=== PATIENT | male | born 1945 | race Caucasian/White ===

== ENCOUNTER 2018-12-13 07:58 | Inpatient (IN) ==
[2018-12-13] MEDS ORDERED: 0.9 % Sodium Chloride 1,000 ML IVC ONE ×2 (08:05→08:54)
[2018-12-13] MEDS ORDERED: Piperacillin/Tazobactam 3.375 GM in 0.9 % Sodium Chloride Mini Bag 100 ML IVPB ONE (08:12)
--- NOTE | 2018-12-13 08:13 | Emergency Department Note ---
Disposition Clinical Impression: Severe sepsis, Esophagitis Left lower lobe pneumonia Qualifiers: Pneumonia type: due to unspecified organism Qualified Code(s): J18.1 - Lobar pneumonia, unspecified organism Anemia Qualifiers: Anemia type: unspecified type Qualified Code(s): D64.9 - Anemia, unspecified Cirrhosis Qualifiers: Hepatic cirrhosis type: other cirrhosis Qualified Code(s): K74.69 - Other cirrhosis of liver Disposition: Admitted As Inpatient Condition: Undetermined Referrals: Carla Hernandez CNP [Primary Care Provider] - Forms: ED Satisfaction Letter Time of Disposition: 10:53 General Adult HPI - General Chief complaint: ED Weakness Stated complaint: general weakness Time Seen by Provider: 12/13/18 08:00 Source: EMS Nursing Notes Reviewed: Yes Vital Signs Reviewed: Yes - History of Present Illness HPI Narrative: Patient is a 73-year-old male with a past medical history including type 2 diabetes mellitus, hypertension, cirrhosis, history of colon cancer, presenting with a chief complaint of chills and generalized weakness. Yesterday the patient states in the evening while he was laying down, he had 2 episodes of substernal chest pressure that lasted several minutes and resolved on its own. He denies any new shortness of breath from his baseline, nausea or vomiting, diaphoresis. He denies history of coronary artery disease or stent placements. He states this morning, he was complaining of chills. called EMS secondary to the chills and generalized weakness. The patient denies documented fevers, cough, congestion, abdominal pain, nausea or vomiting, diarrhea, dysuria or hematuria. At this time he states he has no chest pain. Pain Scale: 0 - Related Data Home Medications Medication Instructions Recorded Confirmed Insulin Glargine,Hum.rec.anlog 25 unit SQ QAM 01/06/15 12/13/18 [Lantus Solostar] Simvastatin [Zocor] 40 mg PO HS 01/06/15 12/13/18 SitaGLIPtin [Januvia] 100 mg PO DAILY 01/06/15 12/13/18 Ferrous Sulfate [Iron] 325 mg PO DAILY@0800 06/11/18 12/13/18 metFORMIN [Glucophage] 1,000 mg PO BIDWM 06/11/18 12/13/18 Spironolactone [Aldactone] 50 mg PO DAILY 10/14/18 12/13/18 Previous Rx's Medication Instructions Recorded Furosemide [Lasix] 40 mg PO DAILY #30 tablet 05/18/18 Allergies Allergy/AdvReac Type Severity Reaction Status Date / Time No Known Allergies Allergy Verified 10/14/18 10:02 All systems ED: reviewed and negative except as stated. Review of Systems: As Per HPI Constitutional: Reports: chills, weakness. Denies: fever ENT ED: Denies: congestion Cardiovascular: Reports: chest pain Respiratory: Denies: cough, dyspnea Gastrointestinal: Denies: abdominal pain, nausea, vomiting Genitourinary: Denies: dysuria, hematuria Neurological: Denies: headache, weakness, numbness Past Medical History - Past Medical History Attestation: Yes The following information was validated with the patient. Source: patient Medical history: Reports: cancer, cirrhosis, diabetes, hyperlipidemia, hypertension, liver disease Surgical history: Reports: appendectomy, cancer surgery, cholecystectomy, colectomy, other Psychiatric history: Reports: no psych history - Social History Smoking Status: Never smoker Smokeless Tobacco Status: No Alcohol use: Reports: none Drug use: Reports: none Physical Exam - General Limitations: no limitations General appearance: alert, in no apparent distress - Head Head exam: atraumatic, normocephalic - Eye Eye exam: Present: normal appearance, PERRL, EOMI - ENT ENT exam: mucous membranes dry - Neck Neck exam: Present: normal inspection, trachea midline - Chest Chest inspection: Present: normal inspection, symmetric chest wall rise. Absent: tenderness - Respiratory Respiratory exam: Present: other (Tachypnea. Diminished breath sounds bilateral bases otherwise no wheezing, crackles, rhonchi). Absent: respiratory distress - Cardiovascular Cardiovascular exam: Present: tachycardia, other (bilateral radial pulses equal). Absent: systolic murmur, diastolic murmur - Abdominal Exam Abdominal exam: Present: soft, Non-Tender. Absent: distention, guarding, rebound - Extremities Exam Extremities exam: Present: normal capillary refill. Absent: pedal edema, calf tenderness - Neurological Exam Neurological exam: Present: alert, oriented X3 - Psychiatric Psychiatric exam: Present: normal affect, normal mood - Skin Skin exam: Present: warm, dry. Absent: diaphoresis, pallor Course Vital Signs Temperature 100.1 F H 12/13/18 08:01 Pulse Rate 131 12/13/18 08:01 Respiratory Rate 30 12/13/18 08:01 Blood Pressure 141/66 12/13/18 08:01 O2 Sat by Pulse Oximetry 97 12/13/18 08:01 Temperature 100.1 F H 12/13/18 08:01 Pulse Rate 118 12/13/18 10:30 Respiratory Rate 30 12/13/18 10:30 Blood Pressure 125/55 12/13/18 10:30 O2 Sat by Pulse Oximetry 100 12/13/18 10:30 Oxygen Delivery Oxygen Delivery Nasal Cannula Medical Decision Making - [facility] Narrative Medical decision making narrative: Patient is tachycardic, tachypneic has a temperature of 100.1. 1 L IV fluids have been ordered. Septic workup will be obtained including chest x-ray, urinalysis, CBC, BMP, blood cultures, lactate. The patient will receive vancomycin and Zosyn to empirically cover him for an unknown source of infection at this time. The patient also states he had chest pain yesterday. He has no history of stent placements, not on anticoagulation. EKG was obtained that shows sinus tachycardia with heart rate 133. Compared to his old EKG, dressed complexes are similar however he does have increased ST elevations and depressions. Cardiology has been paged to evaluate the EKGs. However suspect that patient has cardiac strain secondary to an infectious etiology and tachycardia. Troponin has been added as well. 08:25 Discussed with cardiology, Dr. Reich, who reviewed the patient's EKGs. Clinically this is not acute coronary syndrome. We will continue with septic workup. Patient's at bedside at this time. She states the patient has cirrhosis of the liver secondary to chemotherapy from colon cancer. He had an EGD done 2 days ago by gastroenterology Dr. Fbaian and had 2 esophageal banding do ne. She states the patient developed chills yesterday and has been sleeping more throughout the day. She called because of the chills and increased tiredness. As the patient had a recent EGD and complained of chest pain yesterday, will obtain CT chest with contrast to rule out complications. 08:45 Hemoglobin is 8.8 and in September 2018 his hemoglobin was 12. Rectal examination was performed which shows one non-thrombosis external hemorrhoid, no internal hemorrhoids, no gross red bloody stool. No rectal tears noted. 08:50 Patient's lactate is elevated at 2.6. Times lactate will be for 12 PM. White blood count 11.4. UA within normal limits. 09:12 Chest x-ray imaging results reviewed. Patient has left lower lobe pneumonia. This is the likely source of severe sepsis. Troponin is less than 0.03. Patient is being taken to CT at this time. Once results return, we will admit the patient for further management. Stool occult blood negative. 10:08 CT results reviewed. No pneumomediastinum. Patient does have distal esophagitis. He has left lower lobe pneumonia as well as patchy airspace disease on the right. He does have known cirrhosis. Hospice has been paged for admission for severe sepsis secondary to pneumonia. CODE STATUS: patient states he would like to be DNR/DNI during a cardiac arrest. 10:[address] Sanchez who accepts admission. She would like me to give 10 units SQ insulin to cover him before he gets to the floor as his glucose is in the 400's. - Medical Records Medical records reviewed: Yes I reviewed the patient's medical records. - Lab Data Lab results reviewed: Yes I reviewed the patient's lab results. Result diagrams: 12/13/18 08:12 12/13/18 08:12 Lab Results 12/13/18 12/13/18 12/13/18 Range/Units 08:02 08:11 08:12 WBC 11.4 H (4.3-11.1) K/mcL RBC 3.38 L (4.19-5.50) M/mcL Hgb 8.8 L (12.9-16.9) g/dL Hct 29.6 L (37.5-50.1) % MCV 87.6 (83.0-100.0) fL MCH 26.0 L (28.0-33.3) pg MCHC 29.7 L (31.6-35.5) g/dL RDW 15.6 H (11.5-14.5) % Plt Count 53 L (140-400) K/mcL MPV 12.9 H (9.4-12.4) fL Immature Gran % 1.0 (0-4) % Seg Neutrophils % 89.5 % Lymphocytes % 4.1 % Monocytes % 5.0 % Eosinophils % 0.0 % Basophils % 0.4 % Neutrophils # 10.2 H (1.6-8.9) K/mcL Lymphocytes # 0.5 L (0.6-4.6) K/mcL Monocytes # 0.6 (0.0-1.3) K/mcL Eosinophils # 0.0 (0.0-0.6) K/mcL Basophils # 0.1 (0.0-0.2) K/mcL Immature Plt Fraction 7.0 H (1.1-6.1) % Sodium (136-145) mEq/L Potassium (3.5-5.1) mEq/L Chloride (98-107) mEq/L Carbon Dioxide (23-29) mEq/L BUN (8-23) mg/dL Creatinine (0.70-1.30) mg/dL Est GFR ( Amer) (> 60) Est GFR (Non-Af Amer) (> 60) BUN/Creatinine Ratio (6-26) Glucose (70-105) mg/dL POC Glucose 389 H (70-99) mg/dL Calculated Osmolality (280-300) Lactic Acid (0.5-2.2) mmol/L Calcium (8.6-10.3) mg/dL Total Bilirubin (0.3-1.0) mg/dL AST (13-39) Units/L ALT (7-52) Units/L Alkaline Phosphatase (34-104) Units/L Troponin I (< 0.04) ng/mL Serum Total Protein (6.4-8.9) g/dL Albumin (3.5-5.7) g/dL Globulin (2.4-3.5) g/dL Albumin/Globulin Ratio (1.1-2.2) Urine Color (Yellow) Urine Clarity (Clear) Urine pH (5.0-8.0) pH Units Ur Specific [place] (1.010-1.025) Urine Protein (Neg-Trace) mg/dL Urine Glucose (UA) (Normal) mg/dL Urine Ketones (Negative) mg/dL Urine Blood (Negative) Urine Nitrite (Negative) Urine Bilirubin (Negative) Urine Urobilinogen (Normal) mg/dL Ur Leukocyte Esterase (Negative) Urine Microscopic RBC (0-3) per hpf Urine Microscopic WBC (0-3) per hpf Ur Squamous Epith Cells (None-Few) per lpf Urine Bacteria (None-Few) per hpf Hyaline Casts (None-Few) per lpf Ur Culture Indicated? (NO) Stool Occult Bld Scrn Negative (Negative) 12/13/18 12/13/18 12/13/18 Range/Units 08:12 08:12 08:25 WBC (4.3-11.1) K/mcL RBC (4.19-5.50) M/mcL Hgb (12.9-16.9) g/dL Hct (37.5-50.1) % MCV (83.0-100.0) fL MCH (28.0-33.3) pg MCHC (31.6-35.5) g/dL RDW (11.5-14.5) % Plt Count (140-400) K/mcL MPV (9.4-12.4) fL Immature Gran % (0-4) % Seg Neutrophils % % Lymphocytes % % Monocytes % % Eosinophils % % Basophils % % Neutrophils # (1.6-8.9) K/mcL Lymphocytes # (0.6-4.6) K/mcL Monocytes # (0.0-1.3) K/mcL Eosinophils # (0.0-0.6) K/mcL Basophils # (0.0-0.2) K/mcL Immature Plt Fraction (1.1-6.1) % Sodium 133 L (136-145) mEq/L Potassium 5.1 (3.5-5.1) mEq/L Chloride 102 (98-107) mEq/L Carbon Dioxide 24 (23-29) mEq/L BUN 29 H (8-23) mg/dL Creatinine 1.19 (0.70-1.30) mg/dL Est GFR ( Amer) > 60 (> 60) Est GFR (Non-Af Amer) > 60 (> 60) BUN/Creatinine Ratio 24 (6-26) Glucose 424 H (70-105) mg/dL POC Glucose (70-99) mg/dL Calculated Osmolality 300 (280-300) Lactic Acid 2.6 H (0.5-2.2) mmol/L Calcium 8.9 (8.6-10.3) mg/dL Total Bilirubin 1.3 H (0.3-1.0) mg/dL AST 60 H (13-39) Units/L ALT 61 H (7-52) Units/L Alkaline Phosphatase 124 H (34-104) Units/L Troponin I < 0.03 (< 0.04) ng/mL Serum Total Protein 6.1 L (6.4-8.9) g/dL Albumin 3.5 (3.5-5.7) g/dL Globulin 2.6 (2.4-3.5) g/dL Albumin/Globulin Ratio 1.3 (1.1-2.2) Urine Color Yellow (Yellow) Urine Clarity Cloudy A (Clear) Urine pH 6.0 (5.0-8.0) pH Units Ur Specific [place] 1.021 (1.010-1.025) Urine Protein Trace (Neg-Trace) mg/dL Urine Glucose (UA) >=1000 H (Normal) mg/dL Urine Ketones Negative (Negative) mg/dL Urine Blood Negative (Negative) Urine Nitrite Negative (Negative) Urine Bilirubin Negative (Negative) Urine Urobilinogen Normal (Normal) mg/dL Ur Leukocyte Esterase Negative (Negative) Urine Microscopic RBC 0-3 (0-3) per hpf Urine Microscopic WBC 0-3 (0-3) per hpf Ur Squamous Epith Cells Few (None-Few) per lpf Urine Bacteria None Seen (None-Few) per hpf Hyaline Casts None Seen (None-Few) per lpf Ur Culture Indicated? NO (NO) Stool Occult Bld Scrn (Negative) - Radiology Data Radiology results reviewed: Yes I reviewed the patient's radiology results. Chest X-Ray 12/13/18 08:11 IMPRESSION: Patchy left basilar opacity concerning for pneumonia along with suspected small left pleural effusion. Follow-up to resolution recommended. D/ / 12/13/2018 09:02:40 Clive Kilpatrick MD / [facility] Interpreting Provider: Clive Kilpatrick MD Chest CT 12/13/18 08:36 IMPRESSION: No pneumomediastinum. Distal esophagus appears slightly thickened which may be related to esophagitis. Cirrhosis and portal hypertension. No significant change in hepatic lesions. New partial consolidation left lower lobe and patchy airspace disease in the right lower lobe concerning for infection. Pleural nodularity again noted most prominent in the lower lobes. Multiple scattered pulmonary nodules some of which are ground-glass in appearance and are similar to previous exam. Compression deformities involving T9 and T11 with progressive vertebral height loss since the previous exam. D/ / Chelly Lincoln MD / Chelly Lincoln MD Interpreting Provider: Chelly Lincoln MD - EKG Data EKG #1 EKG attestation: Yes I reviewed and interpreted this EKG. EKG results narrative: EKG obtained at 802 shows sinus tachycardia with heart rate 133, MD interval 173, QRS duration 109, QTC 433, patient has ST depression in lead 1, 2, CO2 elev ation in aVR, V1, V2, ST depression in V3, V4, V5, V6, aVF. This is a poor baseline so a repeat EKG was obtained at 809 which also shows sinus tachycardia at 133, MD interval 153, QRS duration 97, QTC 424. Again this demonstrates ST elevation in aVR, V1, V2 with ST depression in lead 2, lead 3, aVF, V4, V5, V6. Compared to old EKG on 2018 which shows the same complexes however new ST elevation and depressions. At that time the rate was 78. Discussed with Dr. Reich of cardiology who states this is clinically not ACS. Critical Care Time Critical Care Time: Yes Total Critical Care Time: 35 Attestation: Critical care time 35 minutes managing patient's sepsis Attestation Statement - Attestation Attestation: Patient was seen with resident physician. I reviewed the history, physical, assessment and plan, and agree with the findings. I also personally evaluated this patient and had [id number] time with this patient. 73-year-old male presents emergency Department with generalized weakness. Patient states he has had fever since chest today. He also had some chest pain yesterday which lasted several minutes. No history of cardiac disease. Couple days ago he had an EEG with esophageal banding. 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 He denies nausea vomiting or diarrhea. No abdominal pain. No dysuria. Review systems as above remainder negative. Physical exam vital signs patient's tachycardic febrile and has an elevated respiratory rate. Technically he meets sepsis criteria on arrival. ENT is unremarkable. Heart tachycardic regular rhythm. Lungs clear. Abdomen soft nontender. Extremities unremarkable. Neurologically alert and oriented without deficits. Skin no rashes. Psych normal. ED course. Patient was started on sepsis protocol treatments. Additionally an initial EKG demonstrated some pretty significant ST segment depression. He had an elevated rate this could just represent cardiac strain but we wanted a consult cardiology to make sure they agreed with that assessment. They did not recommend further intervention from a Cardiologic standpoint at this time. Patient was also started on IV antibiotics while his results were pending. Workup reveals pneumonia. I will get a CT scan of the chest with his recent EEG to make sure there are no issues there. Patient will be admitted to the hospitalist service for additional evaluation and treatment. I agree with resident physician assessment and plan. ED procedures.I reviewed the patient's EKG as well as the resident physician interpretation and I agree with the findings. Critical care time 35 minutes.
[2018-12-13 08:34] LABS: Bilirubin,Urine Negative (Negative); Blood,Urine Negative (Negative); Clarity,Urine Cloudy (Clear); Color,Urine Yellow (Yellow); Glucose,Urine (UA) >=1000 mg/dL (Normal); Ketones,Urine Negative (Negative); Leukocyte Esterase,Urine Negative (Negative); Nitrite,Urine Negative (Negative); Protein,Urine Trace mg/dL (Neg-Trace); Specific Gravity,Urine 1.021 (1.010-1.025); Urobilinogen,Urine Normal (Normal)
[2018-12-13 08:35] LABS: Hemoglobin 8.8 g/dL (12.9-16.9); Lymphocytes % 4.1 %; Red Cell Distribution Width 15.6 % (11.5-14.5)
[2018-12-13] MEDS ORDERED: Isovue-370 500 ML BOTTLE IVP ONE (08:36)
[2018-12-13 08:37] LABS: Bacteria,Urine None Seen per hpf (None-Few); Hyaline Casts,Urine None Seen per lpf (None-Few); Squamous Epithelial Cell,Urine Few per lpf (None-Few); WBC,Urine 0-3 per hpf (0-3)
[2018-12-13 08:37] LABS: Basophils # 0.1 K/mcL (0.0-0.2); Basophils % 0.4 %; Hematocrit 29.6 % (37.5-50.1); Lymphocytes # 0.5 K/mcL (0.6-4.6); Mean Corpuscular HGB Conc 29.7 g/dL (31.6-35.5); Mean Corpuscular Volume 87.6 fL (83.0-100.0); Mean Platelet Volume 12.9 fL (9.4-12.4); Monocytes # 0.6 K/mcL (0.0-1.3); Neutrophils # 10.2 K/mcL (1.6-8.9); Red Blood Count 3.38 M/mcL (4.19-5.50); Segmented Neutrophils % 89.5 %; White Blood Count 11.4 K/mcL (4.3-11.1)
[2018-12-13 08:38] LABS: Platelet Count 53 K/mcL (140-400)
[2018-12-13 08:57] LABS: Alanine Aminotransferase 61 Units/L (7-52); Albumin 3.5 g/dL (3.5-5.7); Albumin/Globulin Ratio 1.3 (1.1-2.2); Alkaline Phosphatase 124 Units/L (34-104); Aspartate Amino Transferase 60 Units/L (13-39); BUN/Creatinine Ratio 24 (6-26); Bilirubin,Total 1.3 mg/dL (0.3-1.0); Blood Urea Nitrogen 29 mg/dL (8-23); Calcium 8.9 mg/dL (8.6-10.3); Carbon Dioxide 24 mEq/L (23-29); Chloride 102 mEq/L (98-107); Globulin 2.6 g/dL (2.4-3.5); Glucose 424 mg/dL (70-105); Osmolality,Calculated 300 (280-300); Potassium 5.1 mEq/L (3.5-5.1); Sodium 133 mEq/L (136-145); Total Protein 6.1 g/dL (6.4-8.9); Troponin I < 0.03 ng/mL (< 0.04); eGFR For African Americans > 60 (> 60); eGFR For Non-African Americans > 60 (> 60)
[2018-12-13 08:57] LABS: RBC,Urine 0-3 per hpf (0-3)
[2018-12-13] MEDS ORDERED: Acetaminophen 325 MG TABLET PO PRN ×2 (10:49→16:31)
[2018-12-13] MEDS ORDERED: Naloxone 0.4 MG/ML INJ IVP PRN (10:49)
[2018-12-13] MEDS ORDERED: Ondansetron 4 MG/2 ML VIAL IVP PRN (10:49)
[2018-12-13] MEDS ORDERED: Insulin Regular, Human 100 UNIT/ML SQ ONE (10:50)
[2018-12-13] MEDS ORDERED: Vancomycin (wt based) 1,000 MG VIAL IVPB SCH (11:00)
--- NOTE | 2018-12-13 11:11 | Internal Med History&Physical ---
Date of Encounter: 12/13/18 Time of Encounter: 11:11 Internal Medicine - H&P: HPI Chief complaint: Fever History of present illness: Mr. Elliott is a 73 year old male cancer, cirrhosis, diabetes, hyperlipidemia, hypertension, liver disease , Colon cancer, skin cancer who presented with fever, chills and generalized weakness. The patient stated that recently he was in the hospital for upper endoscopy to treat esophageal varesis. The patient cough, congestion, abdominal pain, nausea or vomiting, diarrhea, dysuria or hematuria. The patient was evaluated by the ER staff and nursing studies was suggestive of pneumonia, the patient was admitted for further evaluation where management of health care associated pneumonia. Past Med Surg Social Fam HX - Past Medical History Medical history: cancer, cirrhosis, diabetes, hyperlipidemia, hypertension, liver disease Additional medical history: Colon cancer, skin cancer Psychiatric history: no psych history - Past Surgical History Surgical History: appendectomy, cancer surgery, cholecystectomy, colectomy, other Additional surgical history: colonoscopy - Social History Smoking Status: Never smoker Smokeless Tobacco Status: No Alcohol use: none Drug use: none - Family History Mother Living Status: Hx Family Cancer: Yes Father Living Status: Hx Family Cardiac Disorders: No Hx Family Respiratory Disorders: No Hx Family Cancer: Yes Hx Family GI Disorders: Yes Hx Family Endocrine Disorder: Yes Hx Family Neuromuscular Disorders: No Hx Family Neurologic Disorders: No Hx Family HEENT Disorders: No Hx Family Autoimmune Disorders: No Brother Hx Family Neuromuscular Disorders: Yes (2 CVA'S, PASSED AFTER THE 2ND ONE.) Internal Medicine - H&P: Meds Insulin Glargine,Hum.rec.anlog [Lantus Solostar] 25 unit SQ QAM 01/06/15 [History] Furosemide [Lasix] 40 mg PO DAILY #30 tablet 05/18/18 [Rx] Ferrous Sulfate [Iron] 325 mg PO DAILY 06/11/18 [History] metFORMIN [Glucophage] 1,000 mg PO BIDWM 06/11/18 [History] Spironolactone [Aldactone] 50 mg PO DAILY 10/14/18 [History] Simvastatin [Zocor] 40 mg PO QAM 12/14/18 [History] SitaGLIPtin [Januvia] 100 mg PO DAILY 12/14/18 [History] Amoxicillin/Clavulanate [Augmentin] 875 mg PO BIDWM #10 tablet 12/15/18 [Rx] Azithromycin [Zithromax] 500 mg PO Q24H #4 tablet 12/15/18 [Rx] Lactobacillus [Culturelle] 1 each PO BID #14 cap.sprink 12/15/18 [Rx] Allergy/AdvReac Type Severity Reaction Status Date / Time No Known Allergies Allergy Verified 12/14/18 12:34 All Systems PM: A 10-system review of systems was performed and is negative for pertinent findings except as documented above in the HPI. - Constitutional Vitals: Temp Pulse Resp BP Pulse Ox 102.9 F H 116 26 113/51 99 12/13/18 10:45 12/13/18 11:02 12/13/18 11:02 12/13/18 11:02 12/13/18 11:02 General appearance: Present: A&O X 3 Exam: . - Head Head exam: Present: atraumatic, normocephalic - Neck Neck exam general surgery: Present: supple, trachea midline. Absent: lymphadenopathy - Respiratory Respiratory exam: Present: rhonchi. Absent: accessory muscle use, rales, wheezes - Cardiovascular Cardiovascular exam: Present: RRR, +S1, +S2. Absent: diastolic murmur, gallop, rubs, systolic murmur - GI/Abdominal GI/Abdominal exam: Present: normal bowel sounds, soft, no peritoneal signs. Absent: distended, tenderness - Extremities Exam Extremities exam: Present: warm, radial pulses palpable and symmetrical. Absent: calf tenderness, cyanotic, pedal edema Internal Med - H&P Results - Labs CBC & Chem 7: 12/15/18 08:30 12/15/18 08:30 Labs: Short CBC 12/13/18 Range/Units 08:12 WBC 11.4 H (4.3-11.1) K/mcL Hgb 8.8 L (12.9-16.9) g/dL Hct 29.6 L (37.5-50.1) % Plt Count 53 L (140-400) K/mcL Neutrophils # 10.2 H (1.6-8.9) K/mcL BMP 12/13/18 08:12 Sodium 133 L Potassium 5.1 Chloride 102 Carbon Dioxide 24 BUN 29 H Creatinine 1.19 Glucose 424 H Calcium 8.9 Cardiac Enzymes 12/13/18 Range/Units 08:12 Troponin I < 0.03 (< 0.04) ng/mL Liver Function 12/13/18 Range/Units 08:12 Total Bilirubin 1.3 H (0.3-1.0) mg/dL AST 60 H (13-39) Units/L ALT 61 H (7-52) Units/L Alkaline Phosphatase 124 H (34-104) Units/L Albumin 3.5 (3.5-5.7) g/dL Urine 12/13/18 Range/Units 08:25 Urine Color Yellow (Yellow) Urine Clarity Cloudy A (Clear) Urine pH 6.0 (5.0-8.0) pH Units Ur Specific [place] 1.021 (1.010-1.025) Urine Protein Trace (Neg-Trace) mg/dL Urine Glucose (UA) >=1000 H (Normal) mg/dL - Impressions ITS Impressions Chest X-Ray 12/13/18 08:11 IMPRESSION: Patchy left basilar opacity concerning for pneumonia along with suspected small left pleural effusion. Follow-up to resolution recommended. D/ / 12/13/2018 09:02:40 Clive Kilpatrick MD / [facility] Interpreting Provider: Clive Kilpatrick MD Chest CT 12/13/18 08:36 IMPRESSION: No pneumomediastinum. Distal esophagus appears slightly thickened which may be related to esophagitis. Cirrhosis and portal hypertension. No significant change in hepatic lesions. New partial consolidation left lower lobe and patchy airspace disease in the right lower lobe concerning for infection. Pleural nodularity again noted most prominent in the lower lobes. Multiple scattered pulmonary nodules some of which are ground-glass in appearance and are similar to previous exam. Compression deformities involving T9 and T11 with progressive vertebral height loss since the previous exam. D/ / Chelly Lincoln MD / Chelly Lincoln MD Interpreting Provider: Chelly Lincoln MD - Assessment and Plan (1) Left lower lobe pneumonia Status: Acute Assessment and plan: Health care associated Pneumonia - Blood Cx - Urine Legionella antigen - Antibiotics - CBCD, CMP in AM - Tylenol 650 mg PO q 4-6 hr PRN pain or fever - Heparin 5000 U SQ BID Qualifiers: Pneumonia type: due to unspecified organism Qualified Code(s): J18.1 - Lobar pneumonia, unspecified organism (2) ARF (acute renal failure) Status: Ruled-out Assessment and plan: Most likely secondary to volume depletion in the sittng of underlying infectious process and the diuretics regimen for ascitis. Qualifiers: Acute renal failure type: unspecified Qualified Code(s): N17.9 - Acute kidney failure, unspecified (3) DM2 (diabetes mellitus, type 2) Status: Chronic Assessment and plan: We will start insulin sliding scale with coverage. Qualifiers: Diabetes mellitus terminal operations manager insulin use: with terminal operations manager use Diabetes mellitus complication status: without complication Qualified Code(s): E11.9 - Type 2 diabetes mellitus without complications; Z79.4 - terminal operations manager (current) use of insulin (4) Cirrhosis Status: Chronic Assessment and plan: The patient has history of Ascitis that is well controlled with diuretics regime, we will resumr regimen when renal function back at baseline. Qualifiers: Hepatic cirrhosis type: other cirrhosis Qualified Code(s): K74.69 - Other cirrhosis of liver (5) Anemia Status: Chronic Qualifiers: Anemia type: other cause Other causes of anemia: chronic disease, other Qualified Code(s): D63.8 - Anemia in other chronic diseases classified elsewhere (6) Type 1 diabetes mellitus Status: Chronic Qualifiers: Diabetes mellitus complication status: without complication Qualified Code(s): E10.9 - Type 1 diabetes mellitus without complications (7) Cirrhosis Status: Chronic Qualifiers: Hepatic cirrhosis type: unspecified hepatic cirrhosis Ascites presence: with ascites Qualified Code(s): K74.60 - Unspecified cirrhosis of liver; R18.8 - Other ascites - Time Spent With Patient Total time spent is greater than 50% in coordination of care (as documented) at patient's floor/unit and/or counseling patient:
[2018-12-13] MEDS ORDERED: D5% in Water 1,000 ML IVC PRN (11:50)
[2018-12-13] MEDS ORDERED: *HR* Dextrose 50 % in Water (Syg) 50 ML SYRINGE IVP PRN (11:50)
[2018-12-13] MEDS ORDERED: Dextrose Gel 15 GM/37.5 ML TUBE PO PRN ×2 (11:50)
[2018-12-13] MEDS: 0.9 % Sodium Chloride 1,000 ML IVC SCH ×2 (13:02→20:51)
[2018-12-13 13:14] LABS: Estimated Average Glucose 126 mg/dl
[2018-12-13] MEDS: Insulin LISPRO 300 UNITS/3 ML VIAL SQ SCH ×2 (17:08→20:51)
[2018-12-14 07:28] LABS: Hemoglobin 8.4 g/dL (12.9-16.9)
[2018-12-14 07:29] LABS: Basophils % 0.5 %; Eosinophils # 0.1 K/mcL (0.0-0.6); Eosinophils % 1.4 %; Hematocrit 29.3 % (37.5-50.1); Immature Granulocytes % 0.5 % (0-4); Lymphocytes # 0.9 K/mcL (0.6-4.6); Lymphocytes % 15.3 %; Mean Corpuscular HGB Conc 28.7 g/dL (31.6-35.5); Mean Corpuscular Hemoglobin 25.9 pg (28.0-33.3); Mean Corpuscular Volume 90.4 fL (83.0-100.0); Monocytes # 0.4 K/mcL (0.0-1.3); Monocytes % 6.3 %; Red Blood Count 3.24 M/mcL (4.19-5.50); Red Cell Distribution Width 15.3 % (11.5-14.5); White Blood Count 5.6 K/mcL (4.3-11.1)
[2018-12-14 07:35] LABS: INR 1.5; Prothrombin Time 17.4 Seconds (9.4-12.1)
[2018-12-14 07:37] LABS: Activated Partial Thrombo Time 31.6 Seconds (26.0-36.0)
[2018-12-14] MEDS ORDERED: Aminoglycoside Consult 1 EACH MC ONE (07:57)
[2018-12-14 08:08] LABS: Platelet Count 35 K/mcL (140-400)
[2018-12-14 08:09] LABS: Neutrophils # 4.3 K/mcL (1.6-8.9)
[2018-12-14 08:18] LABS: Hypochromasia Present (Not Present)
[2018-12-14 08:19] LABS: Alanine Aminotransferase 46 Units/L (7-52); Albumin 2.9 g/dL (3.5-5.7); Albumin/Globulin Ratio 1.2 (1.1-2.2); Alkaline Phosphatase 108 Units/L (34-104); Aspartate Amino Transferase 25 Units/L (13-39); BUN/Creatinine Ratio 24 (6-26); Blood Urea Nitrogen 23 mg/dL (8-23); Calcium 7.9 mg/dL (8.6-10.3); Carbon Dioxide 24 mEq/L (23-29); Chloride 110 mEq/L (98-107); Cholesterol 89 mg/dL (< 200); Globulin 2.4 g/dL (2.4-3.5); Glucose 152 mg/dL (70-105); HDL Cholesterol 30 mg/dL (40-59); LDL Cholesterol,Calculated 42 mg/dL (0-99); Magnesium 1.9 mg/dL (1.6-2.6); Osmolality,Calculated 291 (280-300); Phosphorous 1.6 mg/dL (2.7-4.5); Potassium 3.8 mEq/L (3.5-5.1); Sodium 137 mEq/L (136-145); Total Protein 5.3 g/dL (6.4-8.9); Triglycerides 85 mg/dL (< 150); eGFR For African Americans > 60 (> 60); eGFR For Non-African Americans > 60 (> 60)
[2018-12-14] MEDS: Insulin LISPRO 300 UNITS/3 ML VIAL SQ SCH ×4 (08:28→19:53)
[2018-12-14] MEDS: Furosemide 40 MG TABLET PO SCH (08:46)
[2018-12-14] MEDS ORDERED: levoFLOXacin 750 MG/150 ML 750 MG/150 ML BAG IVPB SCH (09:00)
--- NOTE | 2018-12-14 11:40 | Electrocardiograph Report ---
[place] [id number] Test Date: 2018-12-13 Pat Name: Zak Elliott Department: EXAM21 Room: 2A Gender: M W[employer]ing [employer]her: : 1945 Requested By: Aidan Tadeo Order Number: [id number] Reading MD: Ladonna Montero Measurements Intervals [place] Rate: 133 P: -22 PA: 173 QRS: 2 QRSD: 109 T: 126 QT: 291 QTc: 433 Interpretive Statements Sinus tachycardia Probable anteroseptal infarct, recent or acute Lateral leads are also involved Electronically Signed On 12-14-2018 11:38:56 EDT by Ladonna Montero
--- NOTE | 2018-12-14 12:27 | Internal Med Progress Note ---
Hospitalist Progress Note - Encounter Date of Encounter: 12/14/18 Time of Encounter: 12:25 - Subjective Interval History: Patient feels much better this morning. Shortness of breath has improved. Denies any fevers or chills overnight. No nausea or vomiting. Tolerating diet well. - Exam Vitals: Temp Pulse Resp BP Pulse Ox 97.6 F 95 17 124/70 99 12/14/18 12:04 12/14/18 12:04 12/14/18 12:04 12/14/18 12:04 12/14/18 12:04 Exam: General: Patient is alert, no acute distress, oriented x 3 Respiratory: Bronchial breath sounds in right lung. Cardiovascular: Regular rate and rhythm. s1 and s2 normal No clicks, rubs, gallops, or murmurs. No pedal edema Abdomen: Abdomen is soft, distended, ascites present. Bowel sounds are present Musculoskeletal: Spontaneously moving all extremities Skin: warm, dry, intact. Neuro: Alert oriented x 3 normal cranial nerves, no focal deficits - Assessment and Plan (1) Pneumonia Current Visit: Yes Status: Suspected (2) Cirrhosis Current Visit: No Status: Chronic (3) Type 1 diabetes mellitus Current Visit: No Status: Chronic (4) Hypertension Current Visit: No Status: Chronic (5) ARF (acute renal failure) Current Visit: No Status: Acute (6) DM2 (diabetes mellitus, type 2) Current Visit: No Status: Acute (7) Cirrhosis Current Visit: Yes Status: Acute (8) Anemia Current Visit: Yes Status: Acute (9) Esophagitis Current Visit: Yes Status: Acute DVT Prophylaxis: With SCDs as patient has severe thrombocytopenia - Summary of Assessment and Plan Summary of Assessment and Plan: Bilateral pneumonia: Possible community-acquired/or aspiration pneumonia as patient developed these symptoms after he underwent an EGD on 12/11. Continue Zosyn. We will stop vancomycin And Levaquin. Azithromycin for 5 days to cover for atypical organisms. Esophagitis: Will place patient on PPI. Recent upper GI endoscopy showed portal gastropathy/varices and patient had banding none. Cirrhosis of the liver with portal hypertension: Supportive care. No emergent indication for paracentesis. Will resume Lasix and spironolactone. Diabetes mellitus type 2: Continue sliding scale insulin. Will add long-acting insulin. Diabetic diet. DVT prophylaxis with SCDs alone as patient has thrombocytopenia. No active bleeding - Time Spent with Patient Total time spent is greater than 50% in coordination of care (as documented) at patient's floor/unit and/or counseling patient: Internal Medicine: Result - Labs CBC & Chem 7: 12/14/18 06:53 12/14/18 06:53 Labs: Short CBC 12/14/18 Range/Units 06:53 WBC 5.6 D (4.3-11.1) K/mcL Hgb 8.4 L (12.9-16.9) g/dL Hct 29.3 L (37.5-50.1) % Plt Count 35 L (140-400) K/mcL Neutrophils # 4.3 (1.6-8.9) K/mcL BMP 12/14/18 06:53 Sodium 137 Potassium 3.8 D Chloride 110 H Carbon Dioxide 24 BUN 23 Creatinine 0.94 Glucose 152 H Calcium 7.9 L Liver Function 12/14/18 Range/Units 06:53 Total Bilirubin 1.0 (0.3-1.0) mg/dL AST 25 (13-39) Units/L ALT 46 (7-52) Units/L Alkaline Phosphatase 108 H (34-104) Units/L Albumin 2.9 L (3.5-5.7) g/dL - ABG Interpretation ABG results: PT/INR, D-dimer PT 17.4 Seconds (9.4-12.1) H 12/14/18 06:53 Consult Discharge Plan - Plan Referrals: David,Carla Abad, SENIOR COMPLIANCE ANALYST [Primary Care Provider] - (1) Pneumonia Qualifiers: Pneumonia type: aspiration pneumonia Aspiration pneumonia type: unspecified Laterality: bilateral Lung location: lower lobe of lung Qualified Code(s): J69.0 - Pneumonitis due to inhalation of food and vomit (2) Cirrhosis Qualifiers: Hepatic cirrhosis type: unspecified hepatic cirrhosis Ascites presence: with ascites Qualified Code(s): K74.60 - Unspecified cirrhosis of liver; R18.8 - Other ascites (3) Type 1 diabetes mellitus Qualifiers: Diabetes mellitus complication status: without complication Qualified Code(s): E10.9 - Type 1 diabetes mellitus without complications (4) Hypertension Qualifiers: Hypertension type: essential hypertension (5) ARF (acute renal failure) Qualifiers: Acute renal failure type: unspecified Qualified Code(s): N17.9 - Acute kidney failure, unspecified (6) DM2 (diabetes mellitus, type 2) Qualifiers: Diabetes mellitus intermediate designer insulin use: with intermediate designer use Diabetes mellitus complication status: without complication Qualified Code(s): E11.9 - Type 2 diabetes mellitus without complications; Z79.4 - rat exterminator (current) use of insulin (7) Cirrhosis Qualifiers: Hepatic cirrhosis type: other cirrhosis Qualified Code(s): K74.69 - Other cirrhosis of liver (8) Anemia Qualifiers: Anemia type: unspecified type Qualified Code(s): D64.9 - Anemia, unspecified
[2018-12-14] MEDS: Lactobacillus 1 EACH CAP.SPRINK PO SCH (19:52)
[2018-12-14] MEDS ORDERED: Insulin DETEMIR 100 UNIT/ML X5UNITS SQ SCH (21:00)
[2018-12-15 08:05] VITALS: BP 132/69
[2018-12-15] MEDS: Insulin LISPRO 300 UNITS/3 ML VIAL SQ SCH (08:17)
[2018-12-15] MEDS: Furosemide 40 MG TABLET PO SCH (08:49)
[2018-12-15] MEDS: Lactobacillus 1 EACH CAP.SPRINK PO SCH (08:49)
[2018-12-15 08:56] LABS: Basophils # 0.1 K/mcL (0.0-0.2); Basophils % 1.3 %; Eosinophils # 0.1 K/mcL (0.0-0.6); Eosinophils % 2.4 %; Hematocrit 33.3 % (37.5-50.1); Hemoglobin 9.6 g/dL (12.9-16.9); Immature Granulocytes % 0.4 % (0-4); Immature Platelets 9.8 % (1.1-6.1); Lymphocytes # 1.1 K/mcL (0.6-4.6); Lymphocytes % 19.3 %; Mean Corpuscular HGB Conc 28.8 g/dL (31.6-35.5); Mean Corpuscular Hemoglobin 25.1 pg (28.0-33.3); Mean Corpuscular Volume 87.2 fL (83.0-100.0); Mean Platelet Volume 12.9 fL (9.4-12.4); Monocytes # 0.3 K/mcL (0.0-1.3); Monocytes % 5.8 %; Neutrophils # 3.9 K/mcL (1.6-8.9); Platelet Count 53 K/mcL (140-400); Red Blood Count 3.82 M/mcL (4.19-5.50); Segmented Neutrophils % 70.8 %; White Blood Count 5.5 K/mcL (4.3-11.1)
[2018-12-15] MEDS ORDERED: Azithromycin 250 MG TABLET PO SCH (09:00)
[2018-12-15 09:12] LABS: BUN/Creatinine Ratio 22 (6-26); Blood Urea Nitrogen 21 mg/dL (8-23); Calcium 8.7 mg/dL (8.6-10.3); Carbon Dioxide 26 mEq/L (23-29); Chloride 105 mEq/L (98-107); Glucose 169 mg/dL (70-105); Osmolality,Calculated 289 (280-300); Potassium 4.2 mEq/L (3.5-5.1); Sodium 136 mEq/L (136-145); eGFR For African Americans > 60 (> 60); eGFR For Non-African Americans > 60 (> 60)
--- NOTE | 2018-12-15 11:05 | Discharge Summary ---
- NOTES TO OUTPATIENT PROVIDER Notes to Outpatient Provider: Patient with history of cirrhosis was hospitalized here with pneumonia after presenting to the ER with complaints of fevers chills and generalized weakness. Patient developed these symptoms after undergoing upper GI endoscopy. He was treated with antibiotics and blood cultures were sent. Cultures have been negative. Patient is now doing much better and is clinically stable for discharge on oral antibiotics. He will complete treatment for possible aspiration/community-acquired pneumonia. Orders not resulted at time of discharge: Pending orders 12/13/18 08:12 Culture,Blood [BC] Stat Date of Encounter: 12/15/18 Time of Encounter: 11:03 - Discharge Diagnosis (1) Pneumonia Priority: Primary Status: Suspected Qualifiers: Pneumonia type: aspiration pneumonia Aspiration pneumonia type: unspecified Laterality: bilateral Lung location: lower lobe of lung Qualified Code(s): J69.0 - Pneumonitis due to inhalation of food and vomit (2) Cirrhosis Priority: Secondary Status: Chronic Qualifiers: Hepatic cirrhosis type: unspecified hepatic cirrhosis Ascites presence: with ascites Qualified Code(s): K74.60 - Unspecified cirrhosis of liver; R18.8 - Other ascites (3) ARF (acute renal failure) Priority: Secondary Status: Ruled-out Qualifiers: Acute renal failure type: unspecified Qualified Code(s): N17.9 - Acute kidney failure, unspecified (4) DM2 (diabetes mellitus, type 2) Priority: Secondary Status: Chronic Qualifiers: Diabetes mellitus senior care insulin use: with keno terminal operator use Diabetes mellitus complication status: without complication Qualified Code(s): E11.9 - Type 2 diabetes mellitus without complications; Z79.4 - group home (current) use of insulin (5) Cirrhosis Priority: Secondary Status: Chronic Qualifiers: Hepatic cirrhosis type: other cirrhosis Qualified Code(s): K74.69 - Other cirrhosis of liver (6) Anemia Priority: Secondary Status: Chronic Qualifiers: Anemia type: other cause Other causes of anemia: chronic disease, other Qualified Code(s): D63.8 - Anemia in other chronic diseases classified elsewhere (7) Esophagitis Priority: Secondary Status: Chronic (8) Severe sepsis Priority: Secondary Status: Resolved (9) Essential hypertension Priority: Secondary Status: Chronic Hospital course: Mr. Elliott is a 73 year old male Patient with history of cirrhosis was hospitalized here with pneumonia after presenting to the ER with complaints of fevers chills and generalized weakness. Patient developed these symptoms after undergoing upper GI endoscopy. He was treated initially with broad-spectrum antibiotics and blood cultures were sent. Cultures have been negative. Patient is now doing much better and is clinically stable for discharge on oral antibiotics. He will be treated for possible aspiration/community-acquired pneumonia with Augmentin and azithromycin. Discharge discussed with: patient, family, nurse - Time Spent with Patient Total time spent providing and/or coordinating discharge services: Time spent: Less than 30 minutes (25 min) - Discharge Medications Prescriptions: New Amoxicillin/Clavulanate [Augmentin] 875 mg PO BIDWM #10 tablet Azithromycin [Zithromax] 500 mg PO Q24H #4 tablet Lactobacillus [Culturelle] 1 each PO BID #14 cap.sprink Continued Insulin Glargine,Hum.rec.anlog [Lantus Solostar] 25 unit SQ QAM Furosemide [Lasix] 40 mg PO DAILY #30 tablet metFORMIN [Glucophage] 1,000 mg PO BIDWM Ferrous Sulfate [Iron] 325 mg PO DAILY Spironolactone [Aldactone] 50 mg PO DAILY SitaGLIPtin [Januvia] 100 mg PO DAILY Simvastatin [Zocor] 40 mg PO QAM Home Medications: Insulin Glargine,Hum.rec.anlog [Lantus Solostar] 25 unit SQ QAM 01/06/15 [History] Furosemide [Lasix] 40 mg PO DAILY #30 tablet 05/18/18 [Rx] Ferrous Sulfate [Iron] 325 mg PO DAILY 06/11/18 [History] metFORMIN [Glucophage] 1,000 mg PO BIDWM 06/11/18 [History] Spironolactone [Aldactone] 50 mg PO DAILY 10/14/18 [History] Simvastatin [Zocor] 40 mg PO QAM 12/14/18 [History] SitaGLIPtin [Januvia] 100 mg PO DAILY 12/14/18 [History] Amoxicillin/Clavulanate [Augmentin] 875 mg PO BIDWM #10 tablet 12/15/18 [Rx] Azithromycin [Zithromax] 500 mg PO Q24H #4 tablet 12/15/18 [Rx] Lactobacillus [Culturelle] 1 each PO BID #14 cap.sprink 12/15/18 [Rx] Allergies/Adverse Reactions: Allergy/AdvReac Type Severity Reaction Status Date / Time No Known Allergies Allergy Verified 12/14/18 12:34 Date of admission: 12/13/18 11:13 Primary care physician: Carla Hernandez CNP Consults: 12/15/18 09:19 Consult to Nurse Navigator [CONS] Routine Comment: pn Discharging clinician: Kory Ledezma Anticipated date of discharge: 12/15/18 - Constitutional Vitals: Temp Pulse Resp BP Pulse Ox 98.8 F 79 14 132/69 98 12/15/18 08:03 12/15/18 08:03 12/15/18 08:03 12/15/18 08:03 12/15/18 08:03 Exam: General: Patient is alert, no acute distress, oriented x 3 ENT: Mucous membranes moist Respiratory: Coarse breath sounds at right lung base Cardiovascular: Regular rate and rhythm. s1 and s2 normal No clicks, rubs, gallops, or murmurs. No pedal edema Abdomen: Abdomen is soft, distended, ascites present. Bowel sounds are present Musculoskeletal: Spontaneously moving all extremities Skin: warm, dry, intact. Neuro: Alert oriented x 3 normal cranial nerves, no focal deficits - Patient Status Disposition: Home, Self-Care Condition: Good Functional capacity at discharge: independent ambulation Overall status at discharge: patient is progressing back to baseline - Discharge Instructions Instructions: Diabetes Mellitus Type 2 in Adults (DC), Anemia (GEN), Pneumonia (DC) Follow Up With: Carla Hernandez CNP [Primary Care Provider] - (In 1 week) - Diet and Activity Activity: increase activity as tolerated Diet: low fat, low cholesterol, low salt diet, other (Fluid restriction to 1.5 L per day)
--- NOTE | 2018-12-15 14:22 | Electrocardiograph Report ---
[address] [address] Test Date: 2018-12-13 Pat Name: Zak Elliott Department: EXAM21 Room: 2A Gender: M Customer Insight Analyst: : [id number] Requested By: Tyson Coker Order Number: [id number] Reading MD: Omar Mercer Measurements Intervals [place] Rate: 133 P: 41 CO: 153 QRS: 19 QRSD: 97 T: 75 QT: 285 QTc: 424 Interpretive Statements Sinus tachycardia Anterolateral ST-T change possibly due to ischemia Electronically Signed On 12-15-2018 14:20:37 EDT by Omar Mercer
== END 2018-12-15 12:06 | disposition home or self-care (01) | DRG 871 ==
LOC: EMEROOARM 07:58 → 2ANU 11:13
PROVIDERS: ADMIT Internal Medicine Nephrology; ATTEND Internal Medicine Nephrology